=== PATIENT | female | born 1990 | race Caucasian/White ===

== ENCOUNTER 2019-01-26 08:40 | Outpatient (CLI) | payer OTHER ==
--- NOTE | 2019-01-26 10:43 | ULT ---
OBSTETRICAL ULTRASOUND: DATE: 01/26/2019. COMPARISON: None. HISTORY: Evaluate anatomy. TECHNIQUE: Multiplanar grayscale sonographic imaging of the gravid uterus obtained. FINDINGS: Cervical length is approximately 4.5 cm. Single intrauterine gestation is present demonstrating a liv celeste presentation. The placenta is located posteriorly on the maternal right. No evidence for placental previa or abruption. The imaged intracranial contents appear grossly unremarkable. However, the cerebellum and the cistern a magna cannot be well visualized secondary to location of the head. The nose and lips appear grossly unremarkable. Four-chamber heart view appears within normal limits, with a heart rate of 1 33 bpm. The stomach, kidneys, urinary bladder, spine, and umbilical cord appear within normal limits. Amniotic fluid index is 12.7 cm. The umbilical cord insertion site could not be well seen on this examination. biometry: BPD 8.3 cm, 33 weeks 2 days HC 30.4 cm, 33 weeks 6 days AC, 28.6 cm, 32 weeks 5 days FL 0.1 cm, 31 weeks 5 days Average age based on ultrasound is 33 weeks 0 days. Estimated weight is 1984 g +/- 290 g. Estimated date of delivery is 03/16/2019. IMPRESSION: Single intrauterine gestation as detailed above. Transcribed Date/Time: 01/26/2019 10:52 AM
== END 2019-01-26 08:41 | disposition home or self-care (01) ==
LOC: BICULT 08:40
PROVIDERS: ATTEND Nurse Practitioner
DX: O09.93 Supervision of high risk pregnancy, unspecified, third trimester (principal); Z3A.33 33 weeks gestation of pregnancy
CPT/HCPCS: 76805

== ENCOUNTER 2019-03-01 12:00 | Inpatient (IN) | payer MEDICAID, OTHER, SELFPAY ==
[2019-03-22] MEDS: Lactated Ringer's 1,000 ML IV SCH ×3 (10:35→20:10)
[2019-03-22] MEDS ORDERED: Bicitra 30 ML UDCUP PO SCH (10:42)
[2019-03-22] MEDS ORDERED: Ondansetron PF 4 MG/2 ML Vial IVP PRN ×3 (10:42→15:34)
[2019-03-22] MEDS ORDERED: hydrALAZINE 20 MG/ML VIAL SLOW IVP PRN ×2 (10:42→15:34)
[2019-03-22] MEDS ORDERED: Promethazine HCl 25 MG/ML VIAL IM PRN ×3 (10:42→15:34)
[2019-03-22] MEDS ORDERED: CEFAZOLIN 2 GM in Premix Bag 1 BAG IVPB SCH (10:42)
[2019-03-22 10:58] LABS: Hemoglobin 11.7 g/dL (12.0-16.0); Mean Corpuscular HGB CONC 33.9 g/dL (32.0-36.0); Mean Corpuscular Hemoglobin 30.8 pg (27.0-31.0); Mean Corpuscular Volume 90.8 fL (78.0-98.0); Mean Platelet Volume 9.3 fL (7.4-10.4); Platelet Count 209 thou/uL (130-400); RBC Distribution Width 12.5 % (11.5-14.5); Red Blood Cell (RBC) Count 3.81 mill/uL (4.20-5.40); White Blood Cell (WBC) Count 10.6 thou/uL (4.8-10.8)
[2019-03-22 11:03] VITALS: BMI 40.8
[2019-03-22 11:39] LABS: HBSAg Index 0.16 S/CO (0-0.99); Hep B Surf Ag Non-Reactive S/CO (NonReactive)
[2019-03-22 11:49] LABS: Syphilis Antibody Nonreactive (Nonreactive); Syphilis Antibody Index 0.06 S/CO (<1.00 Non-Reactive)
[2019-03-22] MEDS ORDERED: Oxytocin 10 UNITS/ML VIAL ONE (11:59)
[2019-03-22] MEDS ORDERED: MORPHINE 5 MG/10 ML PF VIAL ONE (11:59)
[2019-03-22] MEDS ORDERED: Ondansetron PF 4 MG/2 ML Vial ONE (11:59)
[2019-03-22] MEDS ORDERED: Meperidine HCl/PF 25 MG/ML VIAL SLOW IVP PRN (13:00)
[2019-03-22] MEDS ORDERED: Naloxone HCl 0.4 mg/ml Vial IV PRN (13:00)
[2019-03-22] MEDS ORDERED: Communication Order-Pharmacy FS SCH (13:00)
[2019-03-22] MEDS ORDERED: Ondansetron HCl/PF 4 MG/2 ML Vial IVP PRN (13:00)
[2019-03-22] MEDS ORDERED: Naloxone HCl 0.4 mg/ml Vial IVP PRN ×2 (13:00)
[2019-03-22] MEDS ORDERED: L&D-Morphine 4 MG/ML VIAL SLOW IVP PRN (13:00)
[2019-03-22] MEDS ORDERED: Promethazine HCl 25 MG SUPP PR PRN (13:00)
[2019-03-22] MEDS ORDERED: HYDROmorphone 2 MG/ML VIAL SLOW IVP PRN (13:00)
[2019-03-22] MEDS ORDERED: Ketorolac Tromethamine 30 MG/ML VIAL IVP SCH (13:00)
[2019-03-22] MEDS ORDERED: Ketorolac Tromethamine 30 MG/ML VIAL IVP PRN (13:00)
[2019-03-22] MEDS ORDERED: diphenhydrAMINE 50 MG/ML VIAL IVP PRN (13:00)
--- NOTE | 2019-03-22 13:16 | PDOC.OPDEL ---
OB Operative/Delivery Note Delivery Dr/Surgeon: Dr. He Assist: Dr. Arreola Pre-Delivery Diagnosis: scheduled section Procedure/Post Delivery Dx: repeat low transverse CS Weeks gestation: 39 (39w2d) Anesthesia: spinal - Findings A Sex: male - Additional Findings/Plan Placenta delivered: manual removal findings: low transverse hysterotomy without extension Estimated blood loss: 600mL Compilations/Other Findings: Preoperative Diagnosis: 1)Term intrauterine 2)Previous Postoperative Diagnosis: 1)Term intrauterine , delivered 2)Previous Anesthesia: spinal Indications: The patient is a 28 year old female at 39.2 weeks gestation who presents for repeat section. Procedure in Detail: After risks, benefits, and alternatives were explained to the patient, she gave informed consent. Pre-operative antibiotics included Cefazolin 2 gram IV. The patient was taken to the operating room and spinal anesthesia was initiated. She was placed in the supine position with a left tilt and prepped and draped in usual sterile fashion. A Pfannenstiel incision was made with a scalpel and carried down to the level of the fascia which was sharply nicked. The fascial cut was extended bilaterally with Garza scissors. The inferior and superior edges of the cut fascial edges were elevated with Mehreen clamps and the underlying rectus muscles were sharply and bluntly dissected free. The recti were divided digitally and retracted manually. The peritoneum was entered bluntly and retracted manually. Bladder blade was placed. A low transverse score was made with the scalpel and the uterus was entered in the midline bluntly. Clear fluid was seen. The hysterotomy was extended manually. The was noted to be vertex and was easily delivered by fundal pressure. Mouth and nares were bulb suctioned. Cord clamped and cut and grossly normal male was handed to waiting nurse. Cord blood was obtained. Placenta was manually extracted, found to be intact with 3 vessel cord and sent for pathology. The uterus was externalized and the endometrium was curetted with a dry lap. An omental adhesion was noted on the L anterolateral aspect of the uterus that was taken down with the bovie. The bladder blade was replaced and the uterus was closed with a running locking #1 Monocryl followed by a figure of eight suture with #1 monocryl for hemostasis. Following this hemostasis was noted. The abdomen was irrigated with saline and suctioned free of clots. Seprafilm was placed over the anterior aspect of the uterus. The uterus was internalized and the hysterotomy was again noted to be hemostatic. There was some omentum adhesed to the peritoneum that was taken down using cautery. The peritoneum was closed with running, non-locking 3-0 vicryl suture. The fascia was closed with a running non-locking 0-PDS suture. The subcutaneous tissue was irrigated and found to be hemostatic. The subcutaneous layer was closed with interrupted 3-0 vicryl suture. The skin was approximated with maricruz and a Kalli wound vac was placed. All counts were correct. The patient tolerated the procedure well and was taken to the recovery room in stable condition. Delivery time: 1238 on 03/22/19 Estimated Blood Loss: 600 ml Complications: None Specimens: Cord blood sent to lab for blood type Findings: Grossly normal male went to nursery. Grossly normal placenta with 3 vessel cord discarded Drains: Meredith to gravity draining clear urine Post delivery plan: routine recovery
[2019-03-22] MEDS ORDERED: ePHEDrine/0.9% NaCl/PF SYRINGE 50 mg/10 ml ONE (13:21)
[2019-03-22] MEDS ORDERED: NS / Oxytocin 40 units/1000ml 1,000 ML ONE (13:23)
[2019-03-22] MEDS ORDERED: Simethicone Chewable 80 MG TAB PO PRN (15:34)
[2019-03-22] MEDS ORDERED: Bisacodyl 10 MG SUPP PR PRN (15:34)
[2019-03-22] MEDS ORDERED: Lanolin Ointment 7 GM TUBE TOP PRN (15:34)
[2019-03-22] MEDS ORDERED: diphenhydrAMINE 25 MG CAP PO PRN (15:34)
[2019-03-22] MEDS ORDERED: HYDROcodone/Acetaminophen 5/325 mg Tablet PO PRN (15:34)
[2019-03-22] MEDS ORDERED: NS / Oxytocin 40 units/1000ml 1,000 ML IV SCH (15:34)
[2019-03-22] MEDS ORDERED: Meperidine HCl/PF 25 MG/ML VIAL IM PRN (15:34)
[2019-03-22] MEDS: Ferrous Sulfate 325 MG TAB PO SCH (17:42)
[2019-03-22] MEDS: Ketorolac Tromethamine 30 MG/ML VIAL IVP SCH ×2 (18:28→23:53)
[2019-03-22] MEDS: Docusate Calcium (SURFAK) 240 MG CAP PO SCH (21:14)
[2019-03-23] MEDS ORDERED: Sodium Chloride 0.9% 10 ML ONE (05:51)
[2019-03-23] MEDS: Ketorolac Tromethamine 30 MG/ML VIAL IVP SCH (05:53)
[2019-03-23 05:56] LABS: Hemoglobin 9.8 g/dL (12.0-16.0); Mean Corpuscular HGB CONC 33.8 g/dL (32.0-36.0); Mean Corpuscular Hemoglobin 30.8 pg (27.0-31.0); Mean Corpuscular Volume 91.2 fL (78.0-98.0); Mean Platelet Volume 9.4 fL (7.4-10.4); Platelet Count 165 thou/uL (130-400); RBC Distribution Width 12.5 % (11.5-14.5); Red Blood Cell (RBC) Count 3.19 mill/uL (4.20-5.40); White Blood Cell (WBC) Count 8.2 thou/uL (4.8-10.8)
[2019-03-23] MEDS ORDERED: Adacel (T-DAP) 0.5 ML SYRINGE IM ONE (09:00)
[2019-03-23] MEDS: HYDROcodone/Acetaminophen 5/325 mg Tablet PO PRN ×3 (09:08→18:25)
[2019-03-23] MEDS: Ferrous Sulfate 325 MG TAB PO SCH ×2 (09:08→18:24)
[2019-03-23] MEDS: Prenatal Vitamin 1 TAB PO SCH (09:08)
[2019-03-23] MEDS: Docusate Calcium (SURFAK) 240 MG CAP PO SCH ×2 (09:08→21:24)
[2019-03-23] MEDS: Ibuprofen 800 MG TAB PO SCH ×2 (14:29→21:24)
[2019-03-24] MEDS: Ibuprofen 800 MG TAB PO SCH ×2 (05:55→14:09)
[2019-03-24] MEDS: Ferrous Sulfate 325 MG TAB PO SCH (09:16)
[2019-03-24] MEDS: Docusate Calcium (SURFAK) 240 MG CAP PO SCH (09:16)
[2019-03-24] MEDS: Prenatal Vitamin 1 TAB PO SCH (09:16)
[2019-03-24 13:02] VITALS: BP 123/57; TEMP 98.4
== END 2019-03-24 17:45 | disposition home or self-care (01) | DRG 788 ==
LOC: L&D 03-22 10:03 → 3SW 03-22 15:22
PROVIDERS: ADMIT Family Medicine; ATTEND Family Medicine
PROC: 10D00Z1 Extraction of Products of Conception, Low, Open Approach (ICD-10-PCS; principal; 2019-03-22)
DX: O34.211 Maternal care for low transverse scar from previous cesarean delivery (principal); Z3A.39 39 weeks gestation of pregnancy; Z37.0 Single live birth; O99.62 Diseases of the digestive system complicating childbirth; N73.6 Female pelvic peritoneal adhesions (postinfective)
CPT/HCPCS: 36415; 51702; 85027; 86780; 86850; 86900; 86901; 87340; J0690; J1885; J2274; J2405; J2590